=== PATIENT | male | born 1985 | race Caucasian/White ===

== ENCOUNTER 2017-06-16 22:09 | Emergency (ER) | payer SELFPAY ==
[2017-06-16 22:34] LABS: #Eosinphils 0.4 thou/uL (0.0-0.7); #Lymphocytes 2.7 thou/uL (1.20-3.40); #Monocytes 0.5 thou/uL (0.11-0.59); #Neutrophils 3.9 thou/uL (1.40-6.50); %Basophils 0.3 % (0.0-1.0); %Eosinophils 5.5 % (0.0-10.0); %Lymphocytes 35.5 % (21.0-51.0); %Monocytes 6.5 % (0.0-10.0); %Neutrophils 52.1 % (42.0-75.0); Hemoglobin 15.6 g/dL (14.0-18.0); Mean Corpuscular HGB CONC 35.5 g/dL (32.0-36.0); Mean Corpuscular Hemoglobin 34.7 pg (27.0-31.0); Mean Corpuscular Volume 97.9 fl (80.0-94.0); Mean Platelet Volume 9.1 fL (7.4-10.4); Platelet Count 142 thou/uL (130-400); RBC Distribution Width 11.4 % (11.5-14.5); Red Blood Cell (RBC) Count 4.49 mill/uL (4.70-6.10); White Blood Cell (WBC) Count 7.5 thou/uL (4.8-10.8)
[2017-06-16 22:56] LABS: ALT (SGPT) 13 U/L (8-55); AST (SGOT) 16 U/L (5-34); Albumin 4.5 g/dL (3.5-5.0); Alkaline Phosphatase 67 U/L (40-150); Anion Gap 12 mmol/L (10-20); BUN (Urea Nitrogen) 15 mg/dL (8.9-20.6); Bilirubin, Total 0.4 mg/dL (0.2-1.2); Calc. Creatinine Clearance 0 mL/min (70-130); Calcium 9.7 mg/dL (7.8-10.44); Carbon Dioxide 29 mmol/L (22-29); Chloride 102 mmol/L (98-107); Estimated GFR-MDRD 80; Globulin 2.7 g/dL (2.4-3.5); Glucose 104 mg/dL (70-105); Potassium 3.8 mmol/L (3.5-5.1); Protein, Total 7.2 g/dL (6.0-8.3); Sodium 139 mmol/L (136-145)
[2017-06-17] MEDS ORDERED: Ibuprofen 800 MG TAB ONE (03:03)
--- NOTE | 2017-06-17 09:18 | CT ---
PRELIMINARY REPORT/[facility]/EMERGENTY AFTER-HOURS PROCEDURE CT Maxillofacial With Intravenous Contrast EXAM DATE/TIME: Exam ordered 06/17/2017 3:22 AM CLINICAL HISTORY: 32 years old, male; Signs and symptoms; Mass, lump, or swelling; Maxilla; Patient HX: [id number] yo m. H X of cyst in sinus cavity that resolved but now has returned due to new onset symptoms x2 weeks that was the same symptoms had before with cyst. States yesterday while feeling around he noticed the cyst had returned. Denies any bleeding or pus discharge. Reports BLOCK and sinus pressure and sympto ms. TECHNIQUE: Axial computed tomography images of the face with intravenous contrast. All CT scans at this facility use one or more dose reduction techniques, viz.: automated exposure control; ma/kV adjustment per pa tient size (including targeted exams where dose is matched to indication; i.e. head); or iterative reconstruction technique. COMPARISON: No relevant prior studies available. FINDINGS: Bones/joints: No acute fracture. Soft tissues: There is no definite soft tissue swelling of the premaxillary soft tissue. Orbits: Normal. Sinuses: Normal. No air-fluid levels. Dental: There is a 16 x 10 x 15 mm cyst within the LEFT maxilla involving the roots of the LEFT centr al and lateral incisor compatible with a dentigerous cyst or abscess. IMPRESSION: 1. There is a 16 x 10 x 15 mm cyst within the LEFT maxilla involving the roots of the LEFT central an d lateral incisor compatible with a dentigerous cyst or abscess. 2. There is no definite soft tissue swelling of the premaxillary soft tissue. Thank you for allowing us to participate in the care of your patient. Dictated and Authenticated by: Ahmet Lr MD 06/17/2017 5:31 AM Central Time ([place] & [place]) FINAL REPORT CT FACE WITH IV CONTRAST: DATE: 06/17/17. TIME: Performed on emergency basis at 0327 hours. HISTORY: Facial pain and swelling. FINDINGS: Findings agree with the preliminary report by Dr. Dasilva. Expansile cyst is confirmed within the lef t maxilla. Small area of cortical breakthrough is apparent anteriorly. POS: [facility]
[2017-06-17] MEDS ORDERED: ISOVUE-370 76%-LOCM 1 ML ONE (13:04)
== END 2017-06-17 06:03 | disposition home or self-care (01) ==
LOC: ERS 22:09
DX: J32.9 Chronic sinusitis, unspecified (principal); F17.210 Nicotine dependence, cigarettes, uncomplicated
CPT/HCPCS: 36415; 70487; 80053; 85025